=== PATIENT | male | born 1990 | race Two or more races ===

== ENCOUNTER 2024-08-10 18:55 | Emergency (ER) | payer SELFPAY ==
[~2024-08-10] VITALS: Ht 172.7 cm; Wt 90.0 kg
[2024-08-10] MEDS ORDERED: PRED20TA2 PO (20:33)
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
[2024-08-10 20:48] VITALS: BP 129/92; TEMP 98.2
[2024-08-10] MEDS: methylPREDNISolone SOD SUCC 125 MG/2 ML VL IM ONE (20:58)
[2024-08-10 21:04] VITALS: PULSE 98; RESP 18; O2SAT 96
== END 2024-08-10 21:16 | disposition home or self-care (01) ==
LOC: ER 18:55
DX: L20.9 Atopic dermatitis, unspecified (principal)
CPT/HCPCS: 96372; 99283; J2919